=== PATIENT | male | born 1980 | race Caucasian/White ===

== ENCOUNTER → 2016-10-31 | Outpatient (CLI) | payer BC ==
--- NOTE | 2016-10-31 09:58 | US ---
EXAMINATION TYPE: US scrotum with doppler. Grayscale and color Doppler Duplex imaging performed of marcos crawford scrotum. DATE OF EXAM: 10/31/2016 9:37 AM COMPARISON: No previous CLINICAL HISTORY: pain. Left testicular pain and swelling x 2 days EXAM MEASUREMENTS: TESTICLES: Right Testicle: 4.6 x 2.5 x 3.1 cm Left Testicle: 4.5 x 2.6 x 3.3 cm EPIDIDYMIS HEAD: Right Epididymis: 1.2 x 1.4 x 1.8 cm Left Epididymis: 1.3 x 1.5 x 1.7 cm Doppler performed to assess for testicular vascularity; good bilateral color flow and waveforms are s een. There is no evidence of testicular torsion. Presence of hydroceles: yes, right 3.3cm, left 6.0cm Presence of varicoceles: no IMPRESSION: There are bilateral hydroceles and more on the left side compared to the right. No testic ular torsion or mass.
== END | disposition home or self-care (01) ==
LOC: RADUSMAIN 09:02
PROVIDERS: ATTEND Physician Assistant
DX: N43.3 Hydrocele, unspecified (principal)
CPT/HCPCS: 76870; 93975